=== PATIENT | male | born 1955 | race Caucasian/White ===

== ENCOUNTER 2020-09-02 17:18 | Emergency (ER) | payer MEDICARE, OTHER | END 2020-09-02 21:45 | disposition home or self-care (01) | LOC: ER1 17:18 | DX: U07.1 COVID-19 (principal); I48.91 Unspecified atrial fibrillation; E11.9 Type 2 diabetes mellitus without complications; I10 Essential (primary) hypertension | CPT/HCPCS: 99284; M0239 ==